=== PATIENT | male | born 1990 | race Caucasian/White ===

== ENCOUNTER 2022-04-02 12:49 | Emergency (ER) | payer OTHER, SELFPAY ==
[2022-04-02 16:06] VITALS: BP 136/81; PULSE 71; RESP 20; TEMP 36.6; O2SAT 99; BMI 27.1
[2022-04-02] MEDS: Fluorescein Sodium STRIP 1 STRIP EYE-BOTH (17:45)
[2022-04-02] MEDS: Diphth,Pertus(ACell),Tet Adult 0.5 ML SYRINGE IM (17:46)
[2022-04-02] MEDS: Erythromycin Base 0.5% Oph Oin 1 GM TUBE 1 CM EYE-BOTH (17:46)
[2022-04-02] MEDS: Tetracaine HCl/PF 0.5% Oph Sol 4 ML DROPS 2 DROP EYE-BOTH (17:46)
--- NOTE | 2022-04-02 17:57 | ED_ITS ---
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 He reports that he irrigated his eyes immediately. He denies any other symptoms complaints or concerns at this time. MD chief complaint: eye injury, vision change and foreign body Onset (ago): day(s) (Yesterday) Onset description: sudden Duration: improved Location: both eyes Eye Symptoms: burning, redness, foreign body sensation, itching, blurry vision and photophobia Place: work Mechanism: other (while welding ) Severity: mild Context: other (recent welding ) Associated symptoms: none Treatments Prior to Arrival: irrigated eye Related Data Patient tetanus UTD: No Previous Rx's Medication Instructions Recorded erythromycin 5 mg/gram (0.5 %) eye 0.5 inch ophthalmic (eye) QID 04/02/22 ointment corneal abrasion 7 days #3.5 grams ketorolac 0.5 % eye drops 1 drp ophthalmic (eye) QID #10 mL 04/02/22 Allergies Allergy/AdvReac Type Severity Reaction Status Date / Time shellfish derived Allergy Shortness Verified 04/02/22 16:09 of Breath Review of Systems Review of Systems: Constitutional : No fevers, no chills, No changes in activity, No lethargy, No recent prior head injury, No agitation, No increased fussiness ENT/Mouth : No Ear Pain, No Nasal discharge/drainage Eyes: + Vision changes/blurry/decreased vision, No Eye Pain, No Swelling, No Re dness, + Foreign Body, + Photophobia, no discharge, no drainage, + itching, no eyelid edema, no contact lens uses, + recent welding, no bleeding Cardiovascular : No Chest Pain, No SOB Respiratory : No Cough Gastrointestinal : No Nausea, No Vomiting, No abdominal Pain Genitourinary : No Dysuria, No Urinary Frequency, No Urinary Incontinence, No Urgency, No Flank Pain Musculoskeletal : No joint pain, No neck stiffness, No back pain/injury Skin : No lacerations Neuro : No unsteady gait, No Paresthesias, No Loss of Consciousness, No altered mental status, No dizziness, No Headache Denies past medical history of HIV, recent trauma, coagulopathy, recent spinal/ epidural procedure, new medication, URI symptoms, close contacts with similar symptoms, tick bite, or known CO2 exposure. Yes all other systems are reviewed and are negative [facility] Past Medical History Attestation statement: The following information was validated with the patient. Source: old records reviewed and nursing notes reviewed Physical Exam Vital Signs: Vital Signs: Last Vital Signs Temp 97.9 F 04/02/22 16:06 Pulse 71 04/02/22 16:06 Resp 20 04/02/22 16:06 BP 136/81 04/02/22 16:06 Pulse Ox 99 04/02/22 16:06 O2 Del Method 04/02/22 16:06 BMI result Body Mass Index 27.1 vital signs have been reviewed as normal and appeared to be correct. Blood pressure normal. Heart rate normal. Respiration rate normal. Temperature normal. Oxygen saturation normal. Appearance: Alert. Oriented X3. No acute distress. Head: Normal external exam. Normocephalic. Atraumatic. No Agustin signs noted. No raccoon eyes noted Eyes: PERRLA. EOMI. Bilateral conjunctiva mildly erythematous. Cornea are normal. Funduscopic exam within normal limits. Sclera normal. Eyelids normal. No papilledema noted. Anterior chamber normal. No photophobia noted. Pressure to right eye is 17. Pressure to left eye is 15. ENT: EAC normal. TM's Normal. Pharynx normal. Uvula midline. Moist mucous membranes. Neck: Normal inspection. Neck supple. FROM. No adenopathy. Thyroid Normal. No meningeal signs. No neck mass noted. CVS: Normal heart rate and rhythm. Heart sound normal. No murmurs noted. Pulses normal throughout. Respiratory: No respiratory distress. Painless inspiration. Breath sounds normal. Back: Full range of motion noted. Skin: Skin warm and dry. Normal skin color. Normal skin turgor. No rashes/lesions/lacerations noted. Extremities: Extremities exhibit normal range of motion. Extremities nontender. Neuro: Oriented X 3. No motor deficit. No sensory deficit. Reflexes normal. Course Course Course Narrative: Patient now status post eye exam. Funduscopic exam is normal. Fluorescein exam revealed superficial corneal abrasions. No obvious foreign bodies were noted. No rust ring noted. Normal eye pressures. 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 Patient understands that this plan. Medications Administered Discontinued Medications Generic Name Dose Route Start Last Admin Trade Name Freq PRN Reason Stop Dose Admin Diphtheria/Tetanus/Acell Pertussis 0.5 ml 04/02/22 17:38 04/02/22 17:46 Diphth,Pertus(Acell),Tet Adult 0.5 Ml Syringe IM 04/02/22 17:39 0.5 ml .ONCE ONE Administration Erythromycin 1 cm 04/02/22 17:38 04/02/22 17:46 Erythromycin Base 0.5% Oph Oin 1 Gm Tube EYE-BOTH 04/02/22 17:39 1 cm ONCE ONE Administration Fluorescein Sodium 1 strip 04/02/22 17:38 04/02/22 17:45 Fluorescein Sodium Strip EYE-BOTH 04/02/22 17:39 1 strip ONCE ONE Administration Tetracaine HCl 2 drop 04/02/22 17:38 04/02/22 17:46 Tetracaine Hcl/Pf 0.5% Oph Ana Luisa 4 Ml Drops EYE-BOTH 04/02/22 17:39 2 drop ONCE ONE Administration MDM - Eye Problem Medical Records Attestation: I reviewed the patient's medical records. Procedures FB Removal Eye Time Out performed: Yes Location: eye (L) and eye (R) Topical anesthetic used: tetracaine Evidence of corneal penetration: No Technique: irrigation and cotton tip swab Post-procedure medication: ophthalmic antibiotic Patient tolerated procedure: well and no complications Discharge Plan Discharge Clinical Impression: Corneal abrasion, Photophobia Patient Disposition: Home, Self-Care Instructions: Corneal Abrasion (ED) Prescriptions: New erythromycin 5 mg/gram (0.5 %) ointment 0.5 inch ophthalmic (eye) QID 7 Days Qty: 3.5 0RF ketorolac 0.5 % drops 1 drp ophthalmic (eye) QID Qty: 10 0RF Referrals: Keshav Hung [Physician] - (Llame ma?deonna para hacer tamica amilcar de seguimiento. ) Stand Alone Forms: Work/School Release Print Language: East [place]orese
== END 2022-04-02 18:21 | disposition home or self-care (01) ==
PROVIDERS: Emergency Provider Student in an Organized Health Care Education/Training Program
DX: S05.02XA Injury of conjunctiva and corneal abrasion without foreign body, left eye, initial encounter (principal); H57.13 Ocular pain, bilateral; S05.01XA Injury of conjunctiva and corneal abrasion without foreign body, right eye, initial encounter; X58.XXXA Exposure to other specified factors, initial encounter; Y93.9 Activity, unspecified; Y92.9 Unspecified place or not applicable; Y99.9 Unspecified external cause status; Z79.899 Other long term (current) drug therapy
CPT/HCPCS: 65220; 90471; 90715; 99282; 99284

== ENCOUNTER 2022-07-25 08:46 | Emergency (ER) | payer OTHER, SELFPAY ==
[2022-07-25 08:49] VITALS: BP 129/84; PULSE 75; RESP 18; TEMP 36.8; O2SAT 99; BMI 26.3
--- NOTE | 2022-07-25 09:09 | ED.EYEPROB ---
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 Admits was wearing protective facial shield however felt something go into eye. Denies wearing glasses or contacts. Denies vision change/loss, headache, nausea/vomiting MD chief complaint: eye pain, eye redness and foreign body Onset (ago): hour(s) Related Data Previous Rx's Medication Instructions Recorded naproxen 500 mg tablet 500 mg PO BID PRN pain 30 days #60 07/12/22 tabs omeprazole 20 mg capsule,delayed 20 mg PO DAILY 30 days #30 caps 07/12/22 release erythromycin 5 mg/gram (0.5 %) eye 0.5 inch ophthalmic (eye) TID 7 07/25/22 ointment days #3.5 grams Allergies Allergy/AdvReac Type Severity Reaction Status Date / Time shellfish derived Allergy Shortness Verified 07/25/22 08:52 of Breath Review of Systems Review of Systems: Constitutional: No Fever, No Chills, No Fatigue, No Malaise ENT/Mouth: No Ear Pain, No Nasal Congestion, No sore throat, No Rhinorrhea, No Swallowing Difficulty Eyes: + Eye Pain, No Swelling, + Redness, + Foreign Body, + Discharge, No Vision Changes Cardiovascular: No Chest Pain, No SOB Respiratory: No Cough, No Sputum, No Dyspnea Gastrointestinal: No Nausea, No Vomiting Musculoskeletal: No joint pain, No Myalgias, No Joint Swelling Skin: No Skin Lesions, No rash Neuro: No Weakness, No Loss of Consciousness, No Dizziness, No Headache Yes all other systems are reviewed and are negative Constitutional: Constitutional: Reports as per HPI Eyes: Eyes: Reports photophobia (Left) [facility] Past Medical History Attestation statement: The following information was validated with the patient. Medical History No known health problems Family History Family History Mother Anxiety Father Bipolar 1 disorder Paternal Grandfather Colon cancer Maternal Grandfather Skin cancer (melanoma) Social History Social History Household Members: Spouse, Family and Children Housing: House (family) Patient Tobacco Use Status: Former Tobacco user Tobacco use type: Cigarette Cigarettes Per Day: 10 Years Smoked: 19 e-Cigarette/Vaping Use: Never Used Advance Directives: No Advance Directives Information Provided: Yes Current occupational status: employed Physical Exam Vital Signs: Vital Signs: Last Vital Signs Temp 98.2 F 07/25/22 08:49 Pulse 75 07/25/22 08:49 Resp 18 07/25/22 08:49 BP 129/84 07/25/22 08:49 Pulse Ox 99 07/25/22 08:49 O2 Del Method Room Air 07/25/22 08:49 BMI result Body Mass Index 26.3 Const: General: cooperative, healthy appearing, comfortable and no acute distress Orientation/consciousness: patient oriented x3 Limitations: no limitations HEENT: Head: Yes normal to inspection and Yes atraumatic Ears: hearing grossly normal bilaterally General nose exam: Normal external nose present Face and sinus: Yes normal facial exam Eyes: General: appearance normal, both eyes and all related structures Periorbital: periorbital findings normal Eyelids: Yes eyelids normal Conjunctivae: conjunctival abnormal left conjunctival injection diffuse and discharge (clear); without subconjunctival hemmorhages Corneas: corneas abnormal on the left fluorescein used and foreign body (@ 3 o'clock position) metallic and with rust ring present; without ulcerations Pupils: Equal, round and reactive pupils present EOM: EOMs intact bilaterally (Without pain) Direct Ophthalmoscopy: normal light reflex and photophobia (Left) Neck: Neck: Yes normal visual inspection and Yes no meningeal signs Resp: Effort & Inspection: normal respiratory effort and no respiratory distress Cardio: Rate: regular rate Skin: Rashes: no rashes Wounds: no wounds Neuro: General: patient oriented x3, tone normal and no meningeal signs Cranial nerves: Yes Equal, round and reactive pupils present Gait exam (Neuro): Normal gait present Extrem: General: Yes normal to inspection Course Course Course Narrative: -foreign body removed successfully with Q-tip, however residual rust ring present >> spoke with Ophthalmology, Dr. Hulseberg's office, they will take patient and fit him in today, patient will go directly from ED to their office for further management Results discussed with patient including worrisome signs and symptoms and strict return precautions, and when to return to the emergency department. They verbalized understanding and feel safe for discharge at this time. Medications Administered Discontinued Medications Generic Name Dose Route Start Last Admin Trade Name Teressa PRN Reason Stop Dose Admin Fluorescein Sodium 1 strip 07/25/22 09:09 07/25/22 09:31 Fluorescein Sodium Strip EYE-BOTH 07/25/22 09:10 1 strip ONCE ONE Administration Tetracaine HCl 1 drop 07/25/22 09:09 07/25/22 09:31 Tetracaine Hcl/Pf 0.5% Oph Ana Luisa 4 Ml Drops EYE-BOTH 07/25/22 09:10 1 drop ONCE ONE Administration Medical Decision Making Medical Decision Making [facility] Narrative: 31-year-old [place]raini-speaking male with no significant past medical history presenting to ED complaining of suspected foreign body to left eye with tearing, erythema, and discomfort since yesterday 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 On exam vital signs stable, NAD, nontoxic appearing, metal foreign body with appreciable rust ring noted to left eye at 03:00 o'clock position. You ends intact without pain, no evidence of global rupture, no corneal abrasion/ulceration appreciated Plan: Visual acuity, remove foreign body Please refer to course for remaining clinical decision making, interpretation of labs/imaging results, and discussions with consultants and/or family members. Differential Diagnosis Differential Diagnoses: The differential diagnosis associated with the presentation includes As above Admission/Observation Consideration of admission/observation: Escalation of care including admission/observation considered Lab Data [facility] Lab Attestation statement: I reviewed the patient's lab results. Radiology Impression Discussion of test interpretation with radiology: I have reviewed the radiologist's reading. External Record Review External record reviewed: Inpatient record, Office record, Outpatient record, Prior outpatient labs, Prior outpatient radiology, Primary care record and Outside ED record Procedures FB Removal Eye Location: eye (L) Topical anesthetic used: tetracaine Foreign body: metal Evidence of corneal penetration: No Technique: cotton tip swab Procedure performed under: direct visualization with magnification Post-procedure medication: ophthalmic antibiotic Patient tolerated procedure: well Complications: residual rust ring Discharge Plan Discharge Clinical Impression: Metal foreign body in eye region, Corneal rust ring of left eye Patient Disposition: Home, Self-Care Instructions: Eye Foreign Body (ED) Additional Instructions: You have a metal foreign body in her eye which was removed today, however there is residual rust ring Please proceed to the process designer's office across the street at [address] ERYTHROMYCIN EYE OINTMENT WAS SENT TO HER PHARMACY, PLEASE USE PRESCRIBED If symptoms persist or worsen return to the ED Tiene un cuerpo extra?o de metal en [place] que se extrajo hoy, sin embargo, hay un anillo de ?xido residual. Dir?tanesha al consultorio del oftalm?logo al otro lado de la [place] en [address] SE LE ENVI? A MOORE FARMACIA UN HERMAN?ENTO DE ERITROMICINA PARA LOS OJOS, POR FAVOR UTIL?CELO SEG?N LA PRESCRIPCI?N Si los s?ntomas persisten o empeoran, regrese al servicio de urgencias. Prescriptions: New erythromycin 5 mg/gram (0.5 %) ointment 0.5 inch ophthalmic (eye) TID 7 Days Qty: 3.5 0RF No Action omeprazole 20 mg capsule,delayed release(DR/EC) 20 mg PO DAILY 30 Days Qty: 30 3RF naproxen 500 mg tablet 500 mg PO BID PRN (Reason: pain) 30 Days Qty: 60 2RF Referrals: Keshav Hung [Physician] - (now) Stand Alone Forms: Work/School Release Interventions: ED Discharge Assessment Last Done: 07/25/22 10:13 Discharge Date/Time: 07/25/22 10:16 Print Language: Bahraini
[2022-07-25] MEDS: Fluorescein Sodium STRIP 1 STRIP EYE-BOTH (09:31)
[2022-07-25] MEDS: Tetracaine HCl/PF 0.5% Oph Sol 4 ML DROPS 1 DROP EYE-BOTH (09:31)
== END 2022-07-25 10:16 | disposition home or self-care (01) ==
PROVIDERS: Emergency Provider Student in an Organized Health Care Education/Training Program; PCP Nurse Practitioner Family
DX: T15.02XA Foreign body in cornea, left eye, initial encounter (principal); X58.XXXA Exposure to other specified factors, initial encounter; H57.12 Ocular pain, left eye; Y93.89 Activity, other specified; Y92.9 Unspecified place or not applicable; Y99.0 Civilian activity done for income or pay
CPT/HCPCS: 99282; 99283

== ENCOUNTER → 2022-08-05 08:57 | Outpatient (BNVA) | payer OTHER, SELFPAY | PROVIDERS: PCP Nurse Practitioner Family; Visit Provider Physician Assistant Medical | DX: T24.221A Burn of second degree of right knee, initial encounter (principal); X17.XXXA Contact with hot engines, machinery and tools, initial encounter | CPT/HCPCS: 97597; 99203 ==

== ENCOUNTER → 2022-08-07 14:31 | Outpatient (BNVA) | payer OTHER, SELFPAY | PROVIDERS: PCP Nurse Practitioner Family; Visit Provider Physician Assistant Medical | DX: T24.002A Burn of unspecified degree of unspecified site of left lower limb, except ankle and foot, initial encounter (principal); X08.8XXA Exposure to other specified smoke, fire and flames, initial encounter | CPT/HCPCS: 99213 ==

== ENCOUNTER 2022-08-14 08:56 | Outpatient (REF) | payer OTHER, SELFPAY ==
[2022-08-14 09:31] LABS: Hematocrit 48.3 % (42.0-52.0); Hemoglobin 15.5 g/dl (14.0-18.0); Mean Corpuscular HGB Conc 32.1 g/dl (31.0-36.0); Mean Corpuscular Hemoglobin 29.8 pg (27.0-33.0); Mean Corpuscular Volume 92.7 fL (80.0-98.0); Platelet Count 175 X10*3/uL (160-400); Red Blood Count 5.21 X10*6/uL (4.60-5.80); Red Cell Distribution Width 12.9 % (11.0-16.0); White Blood Count 10.2 X10*3/uL (4.8-10.8)
[2022-08-14 10:07] LABS: Alanine Aminotransferase 20 U/L (0-40); Albumin Level 4.1 g/dL (3.5-5.0); Alkaline Phosphatase 85 U/L (39-117); Anion Gap 10 (12-20); Aspartate Amino Transferase 21 U/L (5-37); Bilirubin Total 0.6 mg/dL (0.0-1.0); Blood Urea Nitrogen 15 mg/dL (9-16); Calcium 8.9 mg/dL (8.4-10.2); Carbon Dioxide 28 mmol/L (22-29); Chloride 109 mmol/L (96-108); Cholesterol 194 mg/dL; Estimated Glomerular Filt Rate > 60; Glucose Fasting 95 mg/dL (60-99); HDL Cholesterol 39 mg/dL; LDL Cholesterol Calculated 138 mg/dl; Potassium 4.4 mmol/L (3.3-5.1); Sodium 143 mmol/L (135-145); Total Protein 6.5 g/dL (6.5-8.0); Triglycerides 87 mg/dL
[2022-08-14 10:27] LABS: TSH reflex Free T4 0.76 uIU/mL (0.32-4.0)
== END 2022-08-14 08:57 | disposition home or self-care (01) ==
LOC: HO.LAB 08:56
PROVIDERS: PCP Nurse Practitioner Family; Visit Provider Nurse Practitioner Family
DX: Z00.00 Encounter for general adult medical examination without abnormal findings (principal)
CPT/HCPCS: 36415; 80053; 80061; 84443; 85027

== ENCOUNTER → 2022-08-14 15:45 | Outpatient (BNVA) | payer OTHER, SELFPAY | PROVIDERS: PCP Nurse Practitioner Family; Visit Provider Physician Assistant Medical | DX: T24.002A Burn of unspecified degree of unspecified site of left lower limb, except ankle and foot, initial encounter (principal); X08.8XXA Exposure to other specified smoke, fire and flames, initial encounter | CPT/HCPCS: 99213 ==

== ENCOUNTER → 2022-08-30 14:36 | Outpatient (BNVA) | payer OTHER, SELFPAY | PROVIDERS: PCP Nurse Practitioner Family; Visit Provider Physician Assistant | DX: T24.002A Burn of unspecified degree of unspecified site of left lower limb, except ankle and foot, initial encounter (principal); X08.8XXA Exposure to other specified smoke, fire and flames, initial encounter | CPT/HCPCS: 99213 ==

== ENCOUNTER 2022-10-15 09:05 | Emergency (ER) | payer OTHER, SELFPAY ==
--- NOTE | ~2022-10-15 | CT_ITS ---
EXAMINATION: CT ABDOMEN AND PELVIS WITHOUT CONTRAST CLINICAL INFORMATION: Severe lower back pain. COMPARISON: None available. TECHNIQUE: Multidetector volumetric imaging was performed from the superior aspect of the liver through the pubic symphysis. Sagittal and coronal reformatted images were obtained on the technologist's workstation. This CT examination was performed using dose optimization techniques as appropriate, variously including the following: *Automated exposure control *Adjustment of mA and/or kV according to patient size (this includes techniques or standardized protocols for targeted exams where dose is matched to indication/reason for exam; i.e. extremities or head) *Use of iterative reconstruction technique DLP: 441 mGy-cm FINDINGS: LUNG BASES: The visualized lung bases are unremarkable. LIVER, GALLBLADDER, AND BILIARY TREE: The liver is normal in size, shape, and attenuation. No focal hepatic lesion or biliary ductal dilatation is present. The gallbladder is unremarkable with no evidence of radiopaque gallstones, gallbladder wall thickening, or obvious pericholecystic inflammatory changes. PANCREAS: Unremarkable. SPLEEN: Unremarkable. ADRENAL GLANDS: Unremarkable. KIDNEYS AND URETERS: The kidneys are normal in size, shape, and attenuation. There is a 2 minute nonobstructive radiopaque calculi mid pole right kidney. No caliectasis or hydronephrosis seen. No additional radiopaque calculi. BLADDER: Unremarkable. GASTROINTESTINAL TRACT: There is scattered stool and gas seen throughout the colon without significant distention. The appendix is normal caliber. The small bowel loops are normal caliber. No free air or free fluid seen. ABDOMINAL WALL: No significant hernia is appreciated. LYMPH NODES: No aggressive lytic or sclerotic process seen. VASCULAR: Unremarkable. PELVIC VISCERA: Unremarkable. OSSEOUS STRUCTURES: No aggressive lytic or sclerotic process seen. CT/CT abdomen pelvis wo IV con IMPRESSION: 1. No acute intra-abdominal process seen. 2. Mild constipation. 3. Nonobstructive radiopaque calculi mid pole right kidney. Diffusely Fleischner guidelines were followed.
[2022-10-15 09:08] VITALS: BP 121/78; PULSE 78; RESP 18; TEMP 36.1; O2SAT 96; BMI 26.9
--- NOTE | 2022-10-15 09:17 | ED_ITS ---
HPI - Back Pain/Injury General Chief Complaint: Back Pain/Injury Stated Complaint: Back Pain No Injury Time Seen by Provider: 10/15/22 09:14 Source: patient Mode of arrival: ambulatory Limitations: no limitations History of Present Illness HPI Narrative: This is a 32-year-old male presenting to the emergency department with complaints of severe right lower back pain atraumatic in nature for the past 2 days worsening. Patient rates the pain greater than 10/10 worse with movement better at rest without radiation. Describes it as a sharp pain. Patient denies previous issues with his back. He denies heavy lifting. He states the pain is making him cry and he has a high pain tolerance. Patient denies fevers, chills, IV drug abuse, history of malignancy, nausea, vomiting, abdominal pain, headache, vision changes, urinary/ bowel incontinence and retention, saddle paresthesias. Related Data Previous Rx's Medication Instructions Recorded naproxen 500 mg tablet 500 mg PO BID PRN pain 30 days #60 07/12/22 tabs omeprazole 20 mg capsule,delayed 20 mg PO DAILY 30 days #30 caps 07/12/22 release ketorolac 10 mg tablet 10 mg PO TID PRN pain 5 days #15 10/15/22 tabs lidocaine 5 % topical patch 1 patch topical DAILY PRN pain #15 10/15/22 ea morphine 15 mg immediate release 15 mg PO Q6H PRN pain 5 days #10 10/15/22 tablet tabs Allergies Allergy/AdvReac Type Severity Reaction Status Date / Time shellfish derived Allergy Shortness Verified 10/15/22 09:11 of Breath Review of Systems Review of Systems: Constitutional : No Weight loss, No Fever, No Chills, ENT/Mouth : No Hearing loss, No Ear Pain, No Nasal Congestion, No Sinus Pain, No Hoarseness, No sore throat, No Rhinorrhea, No Swallowing Difficulty Cardiovascular : No Chest Pain, No SOB Respiratory : No Cough, No Dyspnea Gastrointestinal : No Nausea, No Vomiting, No Diarrhea, No abdominal Pain, No Hematochezia, No Melena Genitourinary : No Dysuria, No Urinary Frequency, No Hematuria, No Urinary Incontinence, Musculoskeletal : positive back pain Skin : No Skin Lesions, No rash Neuro : No Weakness, No Numbness, No Paresthesias, no loss of bowel or bladder incontinence, no saddle anesthesia Yes all other systems are reviewed and are negative PMFSH Past Medical History Attestation statement: The following information was validated with the patient. Source: old records reviewed and nursing notes reviewed Medical History Depression GERD (gastroesophageal reflux disease) Low back pain Tinea versicolor Surgical History No pertinent past surgical history Family History Family History Mother Anxiety Father Bipolar 1 disorder Paternal Grandfather Colon cancer Maternal Grandfather Skin cancer (melanoma) Social History Social History Household Members: Spouse, Family and Children Housing: House (family) Patient Tobacco Use Status: Current everyday Tobacco user Tobacco use type: Cigarette Cigarettes Per Day: 10 Years Smoked: 19 Smoked in Last 30 Days: No e-Cigarette/Vaping Use: Never Used Use of substances other than those prescribed or required for medical reasons: No Advance Directives: No Current occupational status: employed Physical Exam Vital Signs: Vital Signs: Last Vital Signs Temp 97.0 F 10/15/22 09:08 Pulse 78 10/15/22 09:08 Resp 18 10/15/22 09:08 BP 121/78 10/15/22 09:08 Pulse Ox 96 10/15/22 09:08 O2 Del Method Room Air 10/15/22 09:08 BMI result Body Mass Index 26.9 VSS Appearance: Alert.? Oriented X3.? No acute distress.? Head:? Normocephalic, atraumatic, no step-offs or deformities Eyes: Pupils equal, round and reactive to light.? Neck: Normal inspection.? Neck supple.? CVS: Normal heart rate and rhythm.? Pulses normal.? Respiratory: No respiratory distress.? Breath sounds normal.? Abdomen: Soft and nontender.? Skin: Skin warm and dry.? Normal skin color.? Normal skin turgor.? Extremities: No lower extremity edema.? No calf ttp.? 5/5 strength to bilateral upper and lower extremities Back:? No midline tenderness, no C-spine tenderness, full range of motion, no CVA tenderness bilaterally + R. lumbar paraspinous tenderness throughout entire L. spine Neuro: Oriented X 3.? No motor deficit.? No sensory deficit. CN 2-12 intact? .? Ambulating with steady gait normal coordination.? No saddle paresthesias. 2+ patellar reflexes equal and b/l. Course Reevaluation(s) Reevaluation #1: patient very uncomfortable in tears, pain medicine through the IV will be given, CT will be obtained as patient has no history of back issues, atraumatic, question possible kidney stone. Time: 09:46 Reevaluation #2: CBC with slight leukocytosis likely reactive secondary to pain. Chemistry unremarkable bilirubin is slightly elevated 1.3 however no abdominal tenderness on exam. Patient's urine clean. CT abdomen pelvis with no acute intra- abdominal process seen, mild constipation in a nonobstructive radio opaque calculi in the right pole of the right kidney. Time: 11:05 Reevaluation #3: Patient's pain improved patient to be discharged home with morphine, Toradol. Again no red flag symptoms of back pain, patient ambulatory around the department without difficulty. Neuro remains nonfocal, still no red flag symptoms. Will have him follow up with PCP, [facility]. Educated patient on diagnosis and treatment plan, answered all question, patient verbalizes understanding. At this time patient will be discharged home, advised to return with new or worsening symptoms. Educated on worrisome signs and symptoms and when to return. At this time I feel comfortable discharge home. Time: 11:33 Medications Administered Discontinued Medications Generic Name Dose Route Start Last Admin Trade Name Jassiq PRN Reason Stop Dose Admin Sodium Chloride 1,000 mls @ 999 mls/hr 10/15/22 10:00 10/15/22 11:18 Ns IV 10/15/22 11:00 Infused .Q1H1M GIA Infusion Ketorolac Tromethamine 30 mg 10/15/22 10:59 10/15/22 11:16 Ketorolac Tromethamine 15 Mg/Ml Vial IVPUSH 10/15/22 11:00 30 mg ONCE ONE Administration Lidocaine 2 patch 10/15/22 09:34 10/15/22 10:14 Lidocaine 4 % Patch Adh..Patch TRANSDERMA 10/15/22 09:35 2 patch ONCE ONE Administration Protocol Morphine Sulfate 4 mg 10/15/22 09:34 10/15/22 10:13 Morphine Sulfate 4 Mg/Ml Cartridge IVPUSH 10/15/22 09:35 4 mg ONCE ONE Administration Protocol Medical Decision Making Medical Decision Making [facility] Narrative: 32-year-old male presents with R lower back pain X2 days . Without red flag symptoms Physical exam significant for?r. sided lumbar paraspinous tenderness. Likely lumbago versus herniated disc versus lumbar/ thoracic sprain/ strain.? Unlikely cauda equina, cord compression, epidural abscess. unlikely UTI, pyelo, obstructing uropathy or kidney stone. Plan Toradol, cyclobenzaprine and Lidoderm patch. Differential Diagnosis Differential Diagnoses: The differential diagnosis associated with the presentation includes Likely lumbago versus herniated disc versus lumbar/ thoracic sprain/ strain.? Unlikely cauda equina, cord compression, epidural abscess. unlikely UTI, pyelo, obstructing uropathy or kidney stone. Lab Data 10/15/22 09:55 10/15/22 09:55 Labs: Lab Results 10/15/22 10/15/22 10/15/22 Range/Units 09:41 09:41 09:55 WBC 11.1 H (4.8-10.8) X10*3/uL RBC 5.53 (4.60-5.80) X10*6/uL Hgb 16.3 (14.0-18.0) g/dl Hct 50.9 (42.0-52.0) % MCV 92.0 (80.0-98.0) fL MCH 29.5 (27.0-33.0) pg MCHC 32.0 (31.0-36.0) g/dl RDW 12.7 (11.0-16.0) % Plt Count 214 (160-400) X10*3/uL MPV 10.6 (9.4-12.4) fL Immature Gran % (Auto) 0.4 (0.0-0.4) % Neut % (Auto) 66.8 (45-73) % Lymph % (Auto) 23.3 (20-40) % [place] % (Auto) 8.1 (2-11) % Eos % (Auto) 1.1 (0-4) % Baso % (Auto) 0.3 (0-2) % Lymph # (Auto) 2.6 (1.2-4.9) X10*3/uL [place] # (Auto) 0.9 (0.1-1.2) X10*3/uL Eos # (Auto) 0.1 (0.0-0.4) X10*3/uL Baso # (Auto) 0.0 (0.0-0.2) X10*3/uL Abs Immat Gran (auto) 0.04 H (0.00-0.03) X10*3/uL Absolute Neuts (auto) 7.4 (2.0-8.3) x10*3/uL Absolute Nucleated RBC 0.000 (0.0-0.012) X10*3/uL Nucleated RBC % (auto) 0.0 (0.0-0.2) /100WBC ESR (0-15) MM/HR Sodium (135-145) mmol/L Potassium (3.3-5.1) mmol/L Chloride (96-108) mmol/L Carbon Dioxide (22-29) mmol/L Anion Gap (12-20) BUN (9-16) mg/dL Creatinine (0.5-1.4) mg/dL Estim Creat Clear Calc Estimated GFR Random Glucose (60-115) mg/dL Calcium (8.4-10.2) mg/dL Total Bilirubin (0.0-1.0) mg/dL AST (5-37) U/L ALT (0-40) U/L Alkaline Phosphatase (39-117) U/L C-Reactive Protein (< or = 0.50) mg/dL Total Protein (6.5-8.0) g/dL Albumin (3.5-5.0) g/dL Urine Color Yellow Cancelled Urine Appearance Clear Cancelled Urine pH 6.5 Cancelled (5.0-9.0) Ur Specific [place] 1.025 Cancelled (1.005-1.025) Urine Protein Negative Cancelled (Neg-Trace) mg/dL Urine Glucose (UA) Negative Cancelled (Negative) mg/dL Urine Ketones Trace Cancelled (Negative) mg/dL Urine Blood Negative Cancelled (Negative) Urine Nitrite Negative Cancelled (Negative) Ur Leukocyte Esterase Trace H Cancelled (Negative) Urine RBC 0-2 Cancelled (0-2) /HPF Urine WBC 6-10 H Cancelled (0-5) /HPF Urine WBC Clumps Cancelled Ur Squamous Epith Cells 0-2 Cancelled (0-2) /HPF Ur Transition Epith Cell Cancelled Ur Renal Epithelial Cell Cancelled Calcium Oxalate Crystal Cancelled Leucine Crystals Cancelled Cystine Crystals Cancelled Tyrosine Crystals Cancelled Other Crystals Cancelled Urine Bacteria None Seen Cancelled (None Seen) Urine Parasites Cancelled Bilirubin Casts Cancelled Epithelial Casts Cancelled Fatty Casts Cancelled Hyaline Casts 3-5 Cancelled (0-2) /LPF Granular Casts Cancelled Waxy Casts Cancelled Broad Casts Cancelled RBC Casts Cancelled WBC Casts Cancelled Other Casts Cancelled Urine Trichomonas Cancelled Urine Yeast Cancelled 10/15/22 10/15/22 Range/Units 09:55 09:55 WBC (4.8-10.8) X10*3/uL RBC (4.60-5.80) X10*6/uL Hgb (14.0-18.0) g/dl Hct (42.0-52.0) % MCV (80.0-98.0) fL MCH (27.0-33.0) pg MCHC (31.0-36.0) g/dl RDW (11.0-16.0) % Plt Count (160-400) X10*3/uL MPV (9.4-12.4) fL Immature Gran % (Auto) (0.0-0.4) % Neut % (Auto) (45-73) % Lymph % (Auto) (20-40) % [place] % (Auto) (2-11) % Eos % (Auto) (0-4) % Baso % (Auto) (0-2) % Lymph # (Auto) (1.2-4.9) X10*3/uL [place] # (Auto) (0.1-1.2) X10*3/uL Eos # (Auto) (0.0-0.4) X10*3/uL Baso # (Auto) (0.0-0.2) X10*3/uL Abs Immat Gran (auto) (0.00-0.03) X10*3/uL Absolute Neuts (auto) (2.0-8.3) x10*3/uL Absolute Nucleated RBC (0.0-0.012) X10*3/uL Nucleated RBC % (auto) (0.0-0.2) /100WBC ESR 2 (0-15) MM/HR Sodium 141 (135-145) mmol/L Potassium 4.4 (3.3-5.1) mmol/L Chloride 108 (96-108) mmol/L Carbon Dioxide 23 (22-29) mmol/L Anion Gap 14 (12-20) BUN 13 (9-16) mg/dL Creatinine 0.83 (0.5-1.4) mg/dL Estim Creat Clear Calc 137.6 Estimated GFR > 60 Random Glucose 96 (60-115) mg/dL Calcium 9.5 D (8.4-10.2) mg/dL Total Bilirubin 1.3 H (0.0-1.0) mg/dL AST 28 (5-37) U/L ALT 19 (0-40) U/L Alkaline Phosphatase 80 (39-117) U/L C-Reactive Protein 0.22 (< or = 0.50) mg/dL Total Protein 7.9 (6.5-8.0) g/dL Albumin 4.3 (3.5-5.0) g/dL Urine Color Urine Appearance Urine pH (5.0-9.0) Ur Specific [place] (1.005-1.025) Urine Protein (Neg-Trace) mg/dL Urine Glucose (UA) (Negative) mg/dL Urine Ketones (Negative) mg/dL Urine Blood (Negative) Urine Nitrite (Negative) Ur Leukocyte Esterase (Negative) Urine RBC (0-2) /HPF Urine WBC (0-5) /HPF Urine WBC Clumps Ur Squamous Epith Cells (0-2) /HPF Ur Transition Epith Cell Ur Renal Epithelial Cell Calcium Oxalate Crystal Leucine Crystals Cystine Crystals Tyrosine Crystals Other Crystals Urine Bacteria (None Seen) Urine Parasites Bilirubin Casts Epithelial Casts Fatty Casts Hyaline Casts (0-2) /LPF Granular Casts Waxy Casts Broad Casts RBC Casts WBC Casts Other Casts Urine Trichomonas Urine Yeast Tests considered The following testing was considered but not selected: Atraumatic back pain, no need for imaging. No red flag symptoms or cord compression symptoms no need for MRI. Core Measures AMI core measures followed: Yes Measure exclusions: not indicated Critical Care Time Critical Care Time Critical Care Time: No Discharge Plan Discharge Clinical Impression: Lumbar paraspinal muscle spasm, Kidney stone Patient Disposition: Home, Self-Care Instructions: Muscle Spasm (ED), Back Pain (ED) Additional Instructions: Take your medications as prescribed. If you were prescribed antibiotics today, it is important that you take your medication to their entirety, do not skip any doses, do not finish them early. Follow-up with your primary care provider this week. Return to the emergency department with new or worsening symptoms. Such as fevers, chills, chest pain, shortness of breath, nausea, vomiting, dizziness, headache, vision changes, lethargy In case of emergency call 911 Toradol has been sent to your pharmacy, you tolerated this well in the department. Please take this as prescribed do not take this with ibuprofen, or other NSAIDs, do not mix this with alcohol. Side effects of this medication including increased risk for bleeding and possible kidney injury. A narcotic has been sent to your pharmacy please take this as prescribed. Do not take more than the prescribed dose. Narcotic medications can cause addiction. Please do not mix them with alcohol. Do not take them while driving or operating machinery. Do not take them with any other narcotics. Do not share them with friends or family. They can cause constipation. Take them only for severe pain. Atco neelam medicamentos seg?n lo prescrito. Si le recetaron antibi?ticos casiy, es importante que tome rankin medicamento en rankin totalidad, no se salte ninguna dosis, no los termine antes de tiempo. Seguimiento con rankin proveedor de atenci?n primaria esta semana. Regrese al departamento de emergencias con s?ntomas nuevos o que empeoran. Sandra fiebre, escalofr?os, dolor de pecho, dificultad para respirar, n?useas, v?mitos, mareos, dolor de alena, cambios en la visi?n, letargo En charlie de emergencia llama al 911 Toradol jacobs sido enviado a rankin farmacia, lo nancy? reagan en el departamento. T?[place] seg?n lo recetado, no lo tome con ibuprofeno u otros DALJIT, no lo mezcle con alcohol. Los efectos secundarios de suzi medicamento incluyen un mayor riesgo de sangrado y posible lesi?n renal. Se jacobs enviado un narc?lupillo a rankin farmacia, t?[place] seg?n lo prescrito. No tome m?s de la dosis prescrita. Los medicamentos narc?ticos pueden causar adicci?n. Por favor, no los mezcle con alcohol. No los tome mientras conduce u opera maquinaria. No los tome con orly?n otro narc?lupillo. No los comparta con amigos o familiares. Pueden causar estre?imiento. T?melos s?lo para el dolor reinier. CT/CT abdomen pelvis wo IV con IMPRESSION: 1.? No acute intra-abdominal process seen. 2.? Mild constipation. 3. Nonobstructive radiopaque calculi mid pole right kidney. Diffusely CT/CT abdomen pelvis wo IV con IMPRESI?N: 1.? No se observa orly?n proceso intraabdominal marian. 2. Estre?imiento leve. 3. C?lculos radiopacos no obstructivos en el polo medio del ri??n derecho. Difusamente Prescriptions: New ketorolac 10 mg tablet 10 mg PO TID PRN (Reason: pain) 5 Days Qty: 15 0RF lidocaine 5 % adhesive patch,medicated 1 patch topical DAILY PRN (Reason: pain) Qty: 15 0RF Rx Instructions: leave on most painful area for up to 12 hrs morphine 15 mg tablet 15 mg PO Q6H PRN (Reason: pain) 5 Days Qty: 10 0RF Rx Instructions: Partial Fill upon patient request. No Action omeprazole 20 mg capsule,delayed release(DR/EC) 20 mg PO DAILY 30 Days Qty: 30 3RF naproxen 500 mg tablet 500 mg PO BID PRN (Reason: pain) 30 Days Qty: 60 2RF Referrals: [facility] [Provider Group] - 2 days Kushal Hale CNP [Primary Care Provider] - 2 days Stand Alone Forms: Work/School Release
[2022-10-15 10:12] LABS: MANUAL DIFF FLAG NO
[2022-10-15] MEDS: 0.9 % Sodium Chloride 1,000 ML 999 ML IV (10:13)
[2022-10-15] MEDS: Morphine Sulfate 4 MG/ML CARTRIDGE IVPUSH (10:13)
[2022-10-15] MEDS: Lidocaine 4 % Patch ADH..PATCH 2 PATCH TRANSDERMA (10:14)
[2022-10-15 10:16] LABS: Appearance Urine Clear; Color Urine Yellow; Glucose Urine UA Negative (Negative); Leukocyte Esterase Urine Trace (Negative); Nitrite Urine Negative (Negative); PH 6.5 (5.0-9.0); Specific Gravity - Urine 1.025 (1.005-1.025); UMIC TRIGGER UACC YES; Urine Blood Negative (Negative); Urine Ketones Trace mg/dL (Negative); Urine Protein Negative (Neg-Trace)
[2022-10-15 10:16] LABS: Basophils Percent Auto 0.3 % (0-2); Eosinophils Absolute Auto 0.1 X10*3/uL (0.0-0.4); Eosinophils Percent Auto 1.1 % (0-4); Hematocrit 50.9 % (42.0-52.0); Hemoglobin 16.3 g/dl (14.0-18.0); Imm Gran Abs Auto 0.04 X10*3/uL (0.00-0.03); Imm Gran Pct Auto 0.4 % (0.0-0.4); Lymphocytes Absolute Auto 2.6 X10*3/uL (1.2-4.9); Lymphocytes Percent Auto 23.3 % (20-40); Mean Corpuscular Hemoglobin 29.5 pg (27.0-33.0); Mean Platelet Volume 10.6 fL (9.4-12.4); Monocytes Absolute Auto 0.9 X10*3/uL (0.1-1.2); Monocytes Percent Auto 8.1 % (2-11); Neutrophils Absolute Auto 7.4 x10*3/uL (2.0-8.3); Neutrophils Percent Auto 66.8 % (45-73); Platelet Count 214 X10*3/uL (160-400); Red Blood Count 5.53 X10*6/uL (4.60-5.80); Red Cell Distribution Width 12.7 % (11.0-16.0); White Blood Count 11.1 X10*3/uL (4.8-10.8)
[2022-10-15 10:20] LABS: Bacteria Urine None Seen (None Seen); RBC Urine 0-2 /HPF (0-2); Squamous Epithelial Cell Urine 0-2 /HPF (0-2); UACC Culture Trigger YES
[2022-10-15 10:31] LABS: Alanine Aminotransferase 19 U/L (0-40); Albumin Level 4.3 g/dL (3.5-5.0); Alkaline Phosphatase 80 U/L (39-117); Anion Gap 14 (12-20); Aspartate Amino Transferase 28 U/L (5-37); Bilirubin Total 1.3 mg/dL (0.0-1.0); Blood Urea Nitrogen 13 mg/dL (9-16); C Reactive Protein 0.22 mg/dL (< or = 0.50); Calcium 9.5 mg/dL (8.4-10.2); Carbon Dioxide 23 mmol/L (22-29); Chloride 108 mmol/L (96-108); Creatinine Clr Calc Pharmacy 137.6; Estimated Glomerular Filt Rate > 60; Glucose Random 96 mg/dL (60-115); Potassium 4.4 mmol/L (3.3-5.1); Sodium 141 mmol/L (135-145); Total Protein 7.9 g/dL (6.5-8.0)
[2022-10-15 11:13] LABS: Erythrocyte Sedimentation Rate 2 MM/HR (0-15)
[2022-10-15] MEDS: Ketorolac Tromethamine 15 MG/ML VIAL 30 MG IVPUSH (11:16)
--- NOTE | 2022-10-15 11:26 | PC.NURSE ---
pt aox4, medicated per MAR
== END 2022-10-15 11:54 | disposition home or self-care (01) ==
PROVIDERS: Physician Assistant; Emergency Provider Emergency Medicine; PCP Nurse Practitioner Family
DX: N20.0 Calculus of kidney (principal); M62.830 Muscle spasm of back; F17.210 Nicotine dependence, cigarettes, uncomplicated; Z71.6 Tobacco abuse counseling; Z79.899 Other long term (current) drug therapy
CPT/HCPCS: 36415; 74176; 80053; 81001; 85025; 85652; 86140; 87086; 96361; 96374; 96375; 99284; J1885; J2270

== ENCOUNTER 2022-10-23 08:17 | Emergency (ER) | payer OTHER, SELFPAY ==
[2022-10-23 08:20] VITALS: BP 125/83; PULSE 83; RESP 18; TEMP 36.6; O2SAT 97; BMI 25.9
--- NOTE | 2022-10-23 09:03 | ED_ITS ---
HPI - Back Pain/Injury General Chief Complaint: Back Pain/Injury Stated Complaint: Back Pain No Injury Time Seen by Provider: 10/23/22 08:54 Source: patient and RN notes reviewed Mode of arrival: ambulatory Limitations: no limitations History of Present Illness HPI Narrative: This is a 32-year-old South Korean-speaking male presenting to the emergency department for evaluation right-sided low back pain since yesterday. Patient reports that yesterday morning he woke up and developed right-sided low back pain which radiates down the posterior aspect of his right leg into his right great toe. He denies any recent trauma, falls, or heavy lifting. He states that his pain worsens with movement and positional changes. Patient denies any saddle anesthesia, urinary or bowel incontinence. Patient denies any urinary symptoms, denies dysuria, hematuria, urinary frequency or urgency. Patient was seen here last week with back pain however states that his back pain last week is different than the back pain he is experiencing now. Denies taking any medications at home to treat his current symptoms. No other complaints or concerns at this time. MD elicited complaint: back pain Pertinent past history: prior back pain Onset (ago): week(s) Timing: constant Similar Symptoms Previously: Yes Quality: aching Location: lumbar spine Radiation: right upper leg and right leg below the knee Exacerbating factors: movement, supine positioning and walking Relieving factors: immobilization Associated symptoms: denies other symptoms Work related injury: No Related Data Previous Rx's Medication Instructions Recorded naproxen 500 mg tablet 500 mg PO BID PRN pain 30 days #60 07/12/22 tabs omeprazole 20 mg capsule,delayed 20 mg PO DAILY 30 days #30 caps 07/12/22 release ketorolac 10 mg tablet 10 mg PO TID PRN pain 5 days #15 10/15/22 tabs lidocaine 5 % topical patch 1 patch topical DAILY PRN pain #15 10/15/22 ea morphine 15 mg immediate release 15 mg PO Q6H PRN pain 5 days #10 10/15/22 tablet tabs gabapentin 600 mg tablet 600 mg PO BID 14 days #28 tabs 10/16/22 cyclobenzaprine 5 mg tablet 5 mg PO TID PRN muscle spasm #10 10/23/22 tabs ibuprofen 600 mg tablet 600 mg PO Q6H PRN pain #30 tabs 10/23/22 prednisone 20 mg tablet 40 mg PO DAILY 5 days #10 tabs 10/23/22 Allergies Allergy/AdvReac Type Severity Reaction Status Date / Time shellfish derived Allergy Shortness Verified 10/16/22 13:45 of Breath Review of Systems Review of Systems: Constitutional: No Weight loss, No Fever, No Chills ENT/Mouth: No Ear Pain, No Nasal Congestion, No Sinus Pain, No Hoarseness, No sore throat, No Rhinorrhea, No Swallowing Difficulty Cardiovascular: No Chest Pain, No SOB Respiratory: No Cough, No Sputum, No Wheezing Gastrointestinal: No Nausea, No Vomiting, No Diarrhea, No Constipation, No Abdominal pain Genitourinary: No Dysuria, No Urinary Frequency, No Hematuria, No Urinary Incontinence/retention, No Urgency, No Flank Pain Musculoskeletal: +back pain, No joint pain, No Myalgias, No Joint Swelling Skin: No Skin Lesions, No rash Neuro: No Weakness, No Numbness, No Paresthesias PMFSH Past Medical History Medical History Depression GERD (gastroesophageal reflux disease) Low back pain Tinea versicolor Surgical History No pertinent past surgical history Family History Family History Mother Anxiety Father Bipolar 1 disorder Paternal Grandfather Colon cancer Maternal Grandfather Skin cancer (melanoma) Paternal Uncle Cancer Social History Social History Household Members: Spouse, Family and Children Housing: House (family) Alcohol intake: current Alcohol intake frequency: holidays/special occasions only Patient Tobacco Use Status: Current everyday Tobacco user Tobacco use type: Cigarette Cigarettes Per Day: 10 Years Smoked: 19 Smoked in Last 30 Days: Yes e-Cigarette/Vaping Use: Never Used Use of substances other than those prescribed or required for medical reasons: Yes Substance Use Type: Marijuana Substance Use Frequency: Daily Advance Directives: No Advance Directives Information Provided: Yes service: No Current occupational status: employed Cognitive needs: No Hearing needs: No Vision needs: No Physical Exam Vital Signs: Vital Signs: Last Vital Signs Temp 98 F 10/23/22 08:20 Pulse 83 10/23/22 08:20 Resp 18 10/23/22 08:20 BP 125/83 10/23/22 08:20 Pulse Ox 97 10/23/22 08:20 O2 Del Method Room Air 10/23/22 08:20 BMI result Body Mass Index 25.9 Const: Other: General: Awake, alert, and oriented X3. No acute distress. HEENT: Normal inspection CVS: Normal heart rate and rhythm. Pulses normal. Respiratory: No respiratory distress Skin: Warm, dry, no rashes noted to exposed skin. Normal skin color. Normal skin turgor. Extremities: No cervical, thoracic, or lumbar midline spine tenderness, patient has tenderness to palpation over the right paraspinous muscles he and right SI joint. Positive straight leg raise on the right. Deep tendon reflexes are 2+ bilaterally. Distal sensation circulation intact. Neuro: Oriented X 3. No motor deficit. No sensory deficit. Medications Administered Discontinued Medications Generic Name Dose Route Start Last Admin Trade Name Freq PRN Reason Stop Dose Admin Ketorolac Tromethamine 30 mg 10/23/22 09:17 10/23/22 09:28 Ketorolac Tromethamine 30 Mg/Ml Vial IM 10/23/22 09:18 30 mg ONCE ONE Administration Medical Decision Making Medical Decision Making MDM Narrative: 32-year-old [place] Korean-speaking male presenting to the emergency department for evaluation of back pain x2 weeks. Of note, patient was seen on October 15, 2022 with complaints of severe right lower back pain. At that time patient had a CT scan revealing no acute intra-abdominal process, mild constipation and a nonobstructive radiopaque calculi in the right pole of the right kidney. Patient was given IV fluids, Toradol, morphine and lidocaine patch. He was discharged on Toradol and morphine tablets. Patient reports that his symptoms that he is experiencing yesterday is different than the pain he had last week. Patient has no midline spine tenderness therefore I do not think imaging is necessary today. No red flag symptoms. Symptoms consistent with sciatica, will treat with muscle relaxants, prednisone, and anti-inflammatories. Patient has a follow-up appointment with his primary care physician tomorrow. Educated the importance of following up with them. Patient given return precautions if any new or worsening symptoms occur. Patient understands and agrees with plan. Patient stable for discharge. Differential Diagnosis Differential Diagnoses: The differential diagnosis associated with the presentation includes Lumbar strain, lumbar contusion, sciatica, lumbar radiculopathy Discharge Plan Discharge Clinical Impression: Lumbar radiculopathy, Low back pain Patient Disposition: Home, Self-Care Instructions: Acute Low Back Pain (ED) Additional Instructions: Your symptoms are consistent with sciatica. Please follow-up with your primary care physician regarding this visit. Take prescribed medications as directed. Please be aware that Flexeril can cause drowsiness, do not drink alcohol or drive while taking this medication. Gentle stretching and massage will help with your symptoms. You may apply ice or heat packs, use whatever feels better. Watch for any new or worsening symptoms including but not limited to fevers, chills, numbness in your groin, or urinary or bowel incontinence. If any of the symptoms occur please return for re-evaluation. Prescriptions: New prednisone 20 mg tablet 40 mg PO DAILY 5 Days Qty: 10 0RF cyclobenzaprine 5 mg tablet 5 mg PO TID PRN (Reason: muscle spasm) Qty: 10 0RF ibuprofen 600 mg tablet 600 mg PO Q6H PRN (Reason: pain) Qty: 30 0RF No Action ketorolac 10 mg tablet 10 mg PO TID PRN (Reason: pain) 5 Days Qty: 15 0RF lidocaine 5 % adhesive patch,medicated 1 patch topical DAILY PRN (Reason: pain) Qty: 15 0RF Rx Instructions: leave on most painful area for up to 12 hrs morphine 15 mg tablet 15 mg PO Q6H PRN (Reason: pain) 5 Days Qty: 10 0RF Rx Instructions: Partial Fill upon patient request. omeprazole 20 mg capsule,delayed release(DR/EC) 20 mg PO DAILY 30 Days Qty: 30 3RF naproxen 500 mg tablet 500 mg PO BID PRN (Reason: pain) 30 Days Qty: 60 2RF gabapentin 600 mg tablet 600 mg PO BID 14 Days Qty: 28 0RF Stand Alone Forms: Work/School Release Interventions: ED Discharge Assessment Last Done: 10/23/22 10:08 Discharge Date/Time: 10/23/22 10:09
--- NOTE | 2022-10-23 09:22 | PC.NURSE ---
patient a&ox3, c/o rle tingling and rt back pain 9-02/11, pt states hes been having issues walking up stairs as well. call callejas within reach, will continue to monitor
[2022-10-23] MEDS: Ketorolac Tromethamine 30 MG/ML VIAL IM (09:28)
--- NOTE | 2022-10-23 09:30 | PC.NURSE ---
pain medication administered per provider order.
== END 2022-10-23 10:09 | disposition home or self-care (01) ==
PROVIDERS: Emergency Provider Emergency Medicine; PCP Nurse Practitioner Family
DX: M54.16 Radiculopathy, lumbar region (principal); M54.50 Low back pain, unspecified; F17.210 Nicotine dependence, cigarettes, uncomplicated; F12.90 Cannabis use, unspecified, uncomplicated; Z79.899 Other long term (current) drug therapy
CPT/HCPCS: 96372; 99283; 99284; J1885

== ENCOUNTER 2024-01-08 10:53 | Outpatient (AMB) | payer OTHER, SELFPAY ==
--- NOTE | 2024-01-08 10:57 | A.OFFPC_ITS ---
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 Required: Yes Lead Infrastructure Architect Language: Norwegian Allergies shellfish derived Allergy (Verified 01/08/24 11:00) Shortness of Breath Tobacco use date assessed: 01/08/24 Dental Screening Dental Screen Date: 01/08/24 Did you have a dental visit in the last 12 months?: Yes Did you have a dental problem in the last 6 months where you did not have access to dental care?: No Was dental information given to patient?: Patient has dentist HPI HPI Comments History of Present Illness Details 33-year-old Norwegian-speaking male luis miguel lindo with complaints persistent low back pain, worse to his right lower back pain. He notes his symptoms started 2 weeks ago. He has history of chronic low back pain. He was followed by [facility] and received a cortisone injection at his last visit a year ago. He states that he was told he has disc issues in his lumbar spine. He notes that pain is really strong. He denies tingling, numbness, or loss of sensation. Interpretation by professional medical interpreter. [facility] Medical History Depression GERD (gastroesophageal reflux disease) Low back pain Tinea versicolor Surgical History No pertinent past surgical history Family History Mother Anxiety Father Bipolar 1 disorder Paternal Grandfather Colon cancer Maternal Grandfather Skin cancer (melanoma) Paternal Uncle Cancer Social History Household Members: Spouse, Family and Children Housing: House (family) Alcohol intake: current Alcohol intake frequency: holidays/special occasions only Patient Tobacco Use Status: Current everyday Tobacco user Tobacco use type: Cigarette Cigarettes Per Day: 10 Years Smoked: 19 e-Cigarette/Vaping Use: Never Used Substance Use Type: Marijuana service: No Current occupational status: employed Cognitive needs: No Hearing needs: No Vision needs: No Questionnaire Thrive Questionnaire Date Thrive assessed: 07/12/22 IRMA-7 AMB Questionnaire IRMA-7 Date IRMA - 7 assessed: 07/12/22 Source: Developed by Drs. Woo Pate, Adilene Parra, Andrés Retana and colleagues, with an educational juliocesar from [employer]. Review of Systems Const Details: Const Denies chills, Denies fatigue, Denies fever(s), Denies headache(s) and Denies weakness ENT Denies dizziness and Denies headache(s) Card Denies chest pain, Denies lightheadedness, Denies dyspnea and Denies other (Palpitations) Resp Denies cough, Denies dyspnea, Denies wheezing and Denies other ( shortness of breath) GI Denies abdominal pain, Denies melena, Denies hematochezia, Denies change in bowel habits, Denies dyspepsia and Denies nausea Denies hematuria and Denies dysuria Musc Reports as per HPI Skin/Breast Denies rash, Denies unusual bruising and Denies wounds Neuro Denies abnormal gait, Denies dizziness, Denies headache(s), Denies memory loss, Denies numbness, Denies Sensory deficit (Neuro), Denies tingling and Denies weakness Psych Denies anxiety, Denies depression, Denies memory loss Endo Denies cold intolerance, Denies fatigue, Denies heat intolerance, Denies polydipsia and Denies polyuria Aller/Immun Denies wheezing Physical exam (Primary Care) Tobacco/Smoking Status: Tobacco use Status Tobacco use date assessed 08/20/22 01/08/24 10:59 Patient Tobacco Use Status Current everyday Tobacco 01/08/24 10:59 Tobacco use type Cigarette 01/08/24 10:59 e-Cigarette/Vaping Use Never Used 01/08/24 10:59 Thrive Assessment: Date of Thrive Assessment Date Thrive assessed 07/12/22 01/08/24 10:59 Const Other: General: no acute distress and well developed Nutritional Appearance: well nourished Orientation/consciousness: patient oriented x3 HENMT Head: Yes normocephalic and Yes atraumatic Eyes General: appearance normal, both eyes and all related structures Pupils: Equal, round and reactive pupils present EOM: EOMs intact bilaterally Resp Effort & Inspection: normal respiratory effort Auscultation: clear to auscultation bilaterally Cardio Rate: regular rate Rhythm: regular rhythm Heart sounds: S1 normal heart sound present, S2 normal heart sound present, no gallops, no murmurs and no rubs GI Palpation (GI): No Abdominal aortic bruit present, Soft to palpation, nontender, No hepatosplenomegaly present and No Rebound tenderness present Auscultation: normal bowel sounds General: Yes no CVA tenderness Back/Spine/Pelvis Back: no CVA tenderness Cervical Spine: cervical ROM normal and No Cervical spine tenderness Thoracic/Lumbar Spine: thoraco-lumbar ROM normal, No pain with thoraco-lumbar ROM, No thoracic spinal tenderness and lumbar spinal tenderness Extrem General: Yes normal to inspection, No edema and No calf tenderness Skin General: warm and dry. Normal skin color. Normal skin turgorl Neuro General: patient oriented x3, gait normal and no focal neuro deficit Cranial nerves: Yes Equal, round and reactive pupils present Cognition (Neuro): normal cognition Gait exam (Neuro): Normal gait present Sensory Exam: No Sensory deficit (Neuro) Psych Appearance: grossly normal Affect: normal affect Attitude: cooperative Thought process: Normal thought process present Assessment and Plan Assessment & Plan (1) Low back pain: Code(s): M54.50 - Low back pain, unspecified Plan: Lumbar spine tenderness to palpation Negative straight leg raise bilaterally Likely bulging disc or degenerative disc disease Naproxen and cyclobenzaprine ordered. Advised to take as prescribed Warm/cool compresses encouraged Referred to [facility] Follow-up with worsening or new symptoms Verbalized understanding and agreed with treatment plan (2) Laboratory tests ordered as part of a complete physical exam (CPE): Code(s): Z00.00 - Encounter for general adult medical examination without abnormal findings Plan: Fasting labs ordered in preparation of a complete physical exam. Advised to fast for at least 10 hours before getting labs drawn. May drink water Verbalized understanding and agreed with treatment plan. Orders: Orders Comprehensive Bom[place]. Panel Fast Today Z00.00 - Encounter for general adult medical examination without abnormal findings TSH reflex Free T4 Today Z00.00 - Encounter for general adult medical exa mination without abnormal findings Complete Blood Count Auto Diff Today Z00.00 - Encounter for general adult medical examination without abnormal findings Lipid Panel Today Z00.00 - Encounter for general adult medical examination without abnormal findings UA CC w/rflx Micro + Cult Today Z00.00 - Encounter for general adult medical examination without abnormal findings Referrals Orthopedics Referral M54.50 - Low back pain, unspecified Medications: New cyclobenzaprine 10 mg PO TID PRN 60 tabs 1RF muscle spasm Refilled naproxen 500 mg PO BID 30 days PRN 60 tabs 2RF pain Coding Level of Care Code Est Pt Level 4 (04184) Diagnoses Low back pain M54.50 Laboratory tests ordered as part of a complete physical exam (CPE) Z00.00
[2024-01-08 11:03] VITALS: BP 110/70; PULSE 96; RESP 16; TEMP 37; O2SAT 96; BMI 28.1
== END 2024-01-08 11:31 | disposition home or self-care (01) ==
PROVIDERS: PCP Nurse Practitioner Family; Visit Provider Nurse Practitioner Family
DX: M54.50 Low back pain, unspecified (principal)
CPT/HCPCS: 99214